=== PATIENT | male | born 1980 | race Caucasian/White ===

== ENCOUNTER 2019-12-23 09:26 | Emergency (ER) | payer OTHER, SELFPAY ==
[2019-12-23 09:42] VITALS: BP 125/82; PULSE 75; RESP 16; TEMP 36.5; O2SAT 99
--- NOTE | 2019-12-23 11:13 | ED.EAR ---
HPI - Ear Problem General Chief complaint: Ear Stated complaint: Ear Pain History of Present Illness HPI Narrative: Is a 39-year-old male comes in complaining of bilateral ear pain that is been going on for the past month and a half. Patient started using [id number] eardrops and taking Tylenol and ibuprofen. Patient states that it feels like there is fluid in his ears. Patient also informed me that he did have pain initially but now does not seem to have pain. Patient states that it is hard for him to hear. Related Data Home Medications Medication Instructions Recorded Confirmed Stool Softner 12/23/19 Allergies Allergy/AdvReac Type Severity Reaction Status Date / Time ephedrine Allergy Mild Verified 02/03/19 14:38 Review of Systems Review of Systems: Narrative: CONSTITUTIONAL: Denies fever, chills, or sweats. EYES: Denies visual changes, redness, or discharge. ENT: Denies rhinorrhea, congestion, sore throat, or positive otalgia. CARDIOVASCULAR:Denies chest pain, palpitations, or edema. RESPIRATORY: Denies cough or dyspnea. GASTROINTESTINAL: Denies abdominal pain, nausea, vomiting, or diarrhea. GENITOURINARY: Denies dysuria or hematuria. SKIN:[Denies rash or itching. MUSCULOSKELETAL:Denies back pain, joint pain, or myalgia. NEUROLOGIC: Denies headache, numbness, or weakness. PSYCHIATRIC:Denies anxiety or depression PMFSH Comments At time as signature, I have reviewed and agree with nursing past medical, social, surgical and family history. Please see nursing chart for further information. There is no relevant family history pertinent to the presenting complaint. Exam Narrative: Exam Narrative: GENERAL:Well-appearing, well-nourished, and in no acute distress. HEAD:Normocephalic, atraumatic. EYES: PERRLA and EOMI. ENT: Nares clear, positive for moderate clear rhinorrhea or epistaxis. Curtis boggy turbinates mucous membranes moist. Bilateral TM bulging with erythema NECK: Supple. CHEST: Clear to auscultation. No respiratory distress. HEART: Regular rate and rhythm. No murmur heard. Normal peripheral pulses. ABDOMEN: Soft, nontender, nondistended, normal active bowel sounds. EXTREMITIES: Normal range of motion. No edema. SKIN: Warm, dry, no rash. NEURO: No focal deficits. Alert and oriented x3. Course Vital Signs Vital signs: Vital Signs Temperature 97.7 F 12/23/19 09:42 Pulse Rate 75 12/23/19 09:42 Respiratory Rate 16 12/23/19 09:42 Blood Pressure 125/82 12/23/19 09:42 Pulse Oximetry 99 12/23/19 09:42 Temperature 97.7 F 12/23/19 09:42 Pulse Rate 75 12/23/19 09:42 Respiratory Rate 16 12/23/19 09:42 Blood Pressure 125/82 12/23/19 09:42 Pulse Oximetry 99 12/23/19 09:42 Medical Decision Making Vital Signs Vital Signs: Vital Signs Temperature 97.7 F 12/23/19 09:42 Pulse Rate 75 12/23/19 09:42 Respiratory Rate 16 12/23/19 09:42 Blood Pressure 125/82 12/23/19 09:42 Pulse Oximetry 99 12/23/19 09:42 Temperature 97.7 F 12/23/19 09:42 Pulse Rate 75 12/23/19 09:42 Respiratory Rate 16 12/23/19 09:42 Blood Pressure 125/82 12/23/19 09:42 Pulse Oximetry 99 12/23/19 09:42 Discharge Plan Discharge Clinical Impression: Otitis media Qualifiers: Otitis media type: unspecified Chronicity: subacute Qualified Code(s): H66.90 - Otitis media, unspecified, unspecified ear Patient Disposition: Home, Self-Care Condition: Stable Instructions: Antibiotic Form, Ear Infection (ED), Allergic Rhinitis (ED) Prescriptions: New amoxicillin 500 mg capsule 500 mg PO Q12H 10 Days Qty: 20 RF: 0 loratadine [Claritin] 10 mg tablet 10 mg PO DAILY PRN (Reason: allergy symptoms) Qty: 30 RF: 0 fluticasone propionate [Flonase Allergy Relief] 50 mcg/actuation spray,suspension 1 spray NASAL DAILY Qty: 19.8 RF: 0 No Action Stool Softner RF: 0 Follow-up/Referrals: PHYSICIAN,PUBLIC RELATIONS CONSULTANT [Primary Care Provider] -
== END 2019-12-23 11:18 | disposition home or self-care (01) ==
PROVIDERS: Emergency Provider Nurse Practitioner Family
DX: H66.93 Otitis media, unspecified, bilateral (principal)
CPT/HCPCS: 99213; G0463

== ENCOUNTER 2023-04-19 13:53 | Emergency (ER) | payer OTHER, SELFPAY ==
--- NOTE | ~2023-04-19 | XR_ITS ---
EXAMINATION: XR ribs RT 2V INDICATION: Right rib pain TECHNIQUE: 3 views of the right ribs were obtained. COMPARISON: None. FINDINGS: Bone alignment is normal. There is no fracture. The right lung is free of acute opacities. No pleural effusion or pneumothorax. IMPRESSION: 1. No acute cardiopulmonary abnormality or evidence of displaced rib fracture. Reviewed, dictated and finalized at location B.
[2023-04-19 14:08] VITALS: BP 119/77; PULSE 82; RESP 16; TEMP 36.4; O2SAT 99
--- NOTE | 2023-04-19 14:10 | ED.GENADULT ---
HPI - General Adult General Chief complaint: Unspecified Stated complaint: injury right side Time Seen by Provider: 04/19/23 14:10 Source: patient, RN notes reviewed and old records reviewed Mode of arrival: ambulatory Limitations: no limitations History of Present Illness HPI narrative: 42-year-old male presents to the [facility] with pain to the right lateral lower rib area since yesterday. Patient states that he was reaching over on a truck when he felt a pain in the lateral right lower rib. No bruising or swelling noted. Tenderness to the lower wrist rib. Has full range of motion of the shoulder. Lungs are clear to auscultation Onset (ago): day(s) (1) Related Data Home Medications Medication Instructions Recorded Confirmed atorvastatin 40 mg tablet 40 mg PO DAILY 04/19/23 04/19/23 escitalopram oxalate 10 mg tablet 10 mg PO DAILY 04/19/23 04/19/23 meloxicam 15 mg tablet 15 mg PO DAILY 04/19/23 04/19/23 montelukast 10 mg tablet 10 mg PO DAILY 04/19/23 04/19/23 omeprazole 40 mg capsule,delayed 40 mg PO DAILY 04/19/23 04/19/23 release Allergies Allergy/AdvReac Type Severity Reaction Status Date / Time ephedrine Allergy Mild Other Verified 04/19/23 14:04 Review of Systems Review of Systems: All systems reviewed & are unremarkable except as noted in HPI and below Constitutional: Constitutional: Reports no additional constitutional complaints Eyes: Eyes: Reports no additional eye complaints ENT: Reports system reviewed and no additional complaints, except as documented Cardiovascular: Cardiovascular: Reports no additional cardiovascular complaints, Denies chest pain and Denies dyspnea Respiratory: Respiratory: Reports no additional respiratory complaints, Denies chest congestion, Denies cough and Denies dyspnea Gastrointestinal: Gastrointestinal: Reports no additional gastrointestinal complaints, Denies abdominal pain, Denies nausea and Denies vomiting Musculoskeletal: Musculoskeletal: Reports as per HPI Integumentary/Breasts: Skin/Breast: Reports system reviewed and no additional complaints, except as docu Neurologic: Reports system reviewed and no additional complaints, except as documented Psychiatric: Psychiatric: Reports no additional psychiatric complaints Allergic/Immunologic: Allergic/Immunologic: Reports no additional allergic/immunologic complaints [facility] Past Medical History Medical History (Updated 04/20/23 @ 14:03 by Kait Viera APRN) H/O gastroesophageal reflux (GERD) High cholesterol Comments At the time of my signature, I reviewed and agree with the nursing past medical, surgical, social, and family history. There is no relevant family history pertinent to the patient complaint. Exam Const: General: cooperative, healthy appearing, comfortable, no acute distress, well developed, alert and well nourished Nutritional Appearance: well nourished Orientation/consciousness: patient oriented x3 Limitations: no limitations HENMT: Head: normal to inspection Ears: hearing grossly normal bilaterally and external ears normal Face/Nose/Sinus: Normal external nose present, Normal nares present, Normal nasal mucous membranes and turbinates present and normal facial exam Face and sinus: normal facial exam Eyes: General: appearance normal, both eyes and all related structures Alignment and Position: alignment normal Periorbital: periorbital findings normal Pupils: Equal, round and reactive pupils present EOM: EOMs intact bilaterally Neck: Neck: normal visual inspection, full ROM, no lymphadenopathy and no meningeal signs Chest: Chest palpation & inspection: normal inspection of the chest Chest/axillae images: 1. Tenderness to palpation Resp: Effort & Inspection: normal respiratory effort and able to speak in complete sentences Auscultation: clear to auscultation bilaterally, no crackles, no rales, no rhonchi and no wheezes Cardio: Rate: regular rate Rhythm: regular rhythm Jeronimo
[2023-04-19 14:15] VITALS: BP 119/77; PULSE 82; RESP 16; TEMP 36.4; O2SAT 99
== END 2023-04-19 14:48 | disposition home or self-care (01) ==
PROVIDERS: Emergency Provider Nurse Practitioner
DX: S20.211A Contusion of right front wall of thorax, initial encounter (principal); Z79.1 Long term (current) use of non-steroidal anti-inflammatories (NSAID); X50.0XXA Overexertion from strenuous movement or load, initial encounter
CPT/HCPCS: 71100; 99213; G0463

== ENCOUNTER 2023-05-13 15:11 | Emergency (ER) | payer OTHER, SELFPAY ==
[2023-05-13 15:36] VITALS: BP 130/84; PULSE 77; RESP 16; TEMP 37; O2SAT 96
--- NOTE | 2023-05-13 15:49 | ED.UPPEXIN ---
HPI - Extremity Injury (Upper) General Chief Complaint: Extremity Injury, Upper Stated Complaint: injured fingers let hand Time Seen by Provider: 05/13/23 15:49 Source: patient Mode of arrival: ambulatory Limitations: no limitations History of Present Illness HPI narrative: 42-year-old male presented for complaint of laceration to the left index finger tip after injury today. He states he sliced the finger on the vent of a metal color. He applied pressure but was not able to cleanse the site. He is unsure of his last tetanus vaccination. Related Data Home Medications Medication Instructions Recorded Confirmed atorvastatin 40 mg tablet 40 mg PO DAILY 04/19/23 04/19/23 escitalopram oxalate 10 mg tablet 10 mg PO DAILY 04/19/23 04/19/23 meloxicam 15 mg tablet 15 mg PO DAILY 04/19/23 04/19/23 montelukast 10 mg tablet 10 mg PO DAILY 04/19/23 04/19/23 omeprazole 40 mg capsule,delayed 40 mg PO DAILY 04/19/23 04/19/23 release Allergies Allergy/AdvReac Type Severity Reaction Status Date / Time ephedrine Allergy Mild Other Verified 05/13/23 15:25 Review of Systems Review of Systems: CONSTITUTIONAL: Denies body aches, fever, chills EYES: Denies visual changes ENT: Denies rhinorrhea, congestion CARDIOVASCULAR: Denies chest pain, palpitations, or edema. RESPIRATORY: Denies cough or dyspnea. GASTROINTESTINAL: Denies abdominal pain, nausea, vomiting, or diarrhea. SKIN: Reports right finger wound MUSCULOSKELETAL: Denies back pain, joint pain, or myalgia. NEUROLOGIC: Denies headache, numbness, tingling, or weakness. All systems reviewed & are unremarkable except as noted in HPI and below PMFSH Past Medical History Medical History H/O gastroesophageal reflux (GERD) High cholesterol Comments At time of signature, I have reviewed and agree with nursing past medical, surgical, social and family history unless otherwise noted. Please see nursing chart for further information. There is no relevant family history pertinent to the presenting complaint Exam Narrative: GENERAL: Well-appearing, well-nourished, and in no acute distress. HEAD: Normocephalic, atraumatic. EYES: conjunctivae clear NECK: Supple. CHEST: Speaks in full sentences. No respiratory distress. HEART: Regular rate and rhythm. Normal and equal peripheral pulses. EXTREMITIES: Left 2nd digit distal phalanx with laceration and flap in U-shap approx 2cm; active bleeding. Hand has normal strength and sensation, normal range of motion, pulse palpable and equal bilaterally, skin warm, dry, pink. Capillary refill less than 3 seconds. SKIN: Warm, dry, no rash. NEURO: Alert and oriented x3. PSYCH: Normal mood and affect Course Course Emergency Course: Patient is aware of diagnosis, understands and agrees to treatment plan. Anticipatory guidance given. Patient agrees to follow-up as directed and is aware of reasons to seek care at the emergency department. Portions of this record may have been created with voice recognition software Level of Care: Express Care Visit Vital Signs Vital signs: Vital Signs Temperature 98.6 F 05/13/23 15:36 Pulse Rate 77 05/13/23 15:36 Respiratory Rate 16 05/13/23 15:36 Blood Pressure 130/84 05/13/23 15:36 Pulse Oximetry 96 05/13/23 15:36 Oxygen Delivery Room Air 05/13/23 15:36 Temperature 98.6 F 05/13/23 15:36 Pulse Rate 77 05/13/23 15:36 Respiratory Rate 16 05/13/23 15:36 Blood Pressure 130/84 05/13/23 15:36 Pulse Oximetry 96 05/13/23 15:36 Oxygen Delivery Room Air 05/13/23 15:36 Reviewed Procedures Laceration left 2nd digit: Date: 05/13/23 Size (cm): 2 Description: flap (U-shape) and irregular Depth: simple, single layer Local Anesthetic: lidocaine 1% (digital block) Amount of anesthesia used (mL): 10 Pre-repair: wound explored and irrigated (50mL)
[2023-05-13] MEDS: TETANUS,DIPHTHERIA,AC PERTUSSIS ADULT (0.5 ML) BOOSTRIX IM (16:06)
== END 2023-05-13 17:00 | disposition home or self-care (01) ==
PROVIDERS: Emergency Provider Nurse Practitioner Family; PCP Family Medicine
DX: S61.211A Laceration without foreign body of left index finger without damage to nail, initial encounter (principal); W45.8XXA Other foreign body or object entering through skin, initial encounter; Z23 Encounter for immunization; K21.9 Gastro-esophageal reflux disease without esophagitis; E78.00 Pure hypercholesterolemia, unspecified
CPT/HCPCS: 12001; 90471; 90715; 99213; G0463

== ENCOUNTER 2023-09-25 10:33 | Emergency (ER) | payer OTHER, SELFPAY ==
[2023-09-25 10:43] VITALS: BP 126/91; PULSE 67; RESP 16; TEMP 36.3; O2SAT 99
--- NOTE | 2023-09-25 10:52 | ED.URI ---
HPI - URI/Sore Throat General Chief Complaint: Upper Respiratory Infection Stated Complaint: both ears blocked,cough Source: patient Mode of arrival: ambulatory Limitations: no limitations History of Present Illness HPI Narrative: 42 y/o male presented for c/o bilateral ear pressure for about one month. Endorses sinus congestion and cough for the same amount of time. Taking antihistamine and Flonase for symptoms. Denies tinnitus, dizziness, sob, wheezing, n/v/d/f/c. Related Data Home Medications Medication Instructions Recorded Confirmed atorvastatin 40 mg tablet 40 mg PO DAILY 04/19/23 09/25/23 escitalopram oxalate 10 mg tablet 10 mg PO DAILY 04/19/23 09/25/23 meloxicam 15 mg tablet 15 mg PO DAILY 04/19/23 09/25/23 montelukast 10 mg tablet 10 mg PO DAILY 04/19/23 09/25/23 omeprazole 40 mg capsule,delayed 40 mg PO DAILY 04/19/23 09/25/23 release cyclobenzaprine 10 mg tablet 10 mg PO TID PRN Muscle Pain 09/25/23 09/25/23 Allergies Allergy/AdvReac Type Severity Reaction Status Date / Time No Known Allergies Allergy Verified 09/25/23 10:53 Review of Systems Review of Systems: CONSTITUTIONAL: Denies malaise, chills, or fever. EYES: Denies visual changes, redness, or discharge. ENT: reports rhinorrhea, congestion, sinus pain, ear pain. CARDIOVASCULAR: Denies chest pain, palpitations, or edema. RESPIRATORY: reports cough denies dyspnea. GASTROINTESTINAL: Denies abdominal pain, nausea, vomiting, diarrhea SKIN: Denies rash or itching. MUSCULOSKELETAL: Denies myalgia. NEUROLOGIC: Denies headache. All systems reviewed & are unremarkable except as noted in HPI and below PMFSH Past Medical History Medical History H/O gastroesophageal reflux (GERD) High cholesterol Comments At time of signature, agree with nursing past medical, surgical, social and family history. There is no relevant family history pertinent to the presenting complaint Exam Narrative: GENERAL: Well-appearing, and in no acute distress. HEAD: Normocephalic EYES: PERRLA, conjunctivae clear ENT: Nares clear. Mucous membranes moist. TMs erythematous, bulging and intact with purulent effusion, canals not erythematous; No drainage, no tragal tenderness. Oropharynx not erythematous no drooling, no hoarseness, no trismus, uvula midline. NECK: Supple. No lymphadenopathy CHEST: Clear to auscultation, breath sounds equal. No wheezing, rhonchi, rales, or stridor. No respiratory distress, speaks in full sentences. HEART: Regular rate and rhythm. No murmur heard. SKIN: Warm, dry, no rash. NEURO: Alert and oriented x3. PSYCH: Normal mood and affect Course Course Emergency Course: Patient is aware of diagnosis, understands and agrees to treatment plan. Anticipatory guidance given. Patient agrees to follow-up as directed and is aware of reasons to seek care at the emergency department. Portions of this record may have been created with voice recognition software Level of Care: Express Care Visit Vital Signs Vital signs: Vital Signs Temperature 97.3 F L 09/25/23 10:43 Pulse Rate 67 09/25/23 10:43 Respiratory Rate 16 09/25/23 10:43 Blood Pressure 126/91 H 09/25/23 10:43 Pulse Oximetry 99 09/25/23 10:43 Oxygen Delivery Room Air 09/25/23 10:43 Temperature 97.3 F L 09/25/23 10:43 Pulse Rate 67 09/25/23 10:43 Respiratory Rate 16 09/25/23 10:43 Blood Pressure 126/91 H 09/25/23 10:43 Pulse Oximetry 99 09/25/23 10:43 Oxygen Delivery Room Air 09/25/23 10:43 Reviewed MDM - URI/Sore Throat MDM Narrative Medical decision making narrative: Discussed physical exam findings c/w bilateral AOM. Advised supportive measures and signs/symptoms to go to the ER. Pt is appropriate for outpt treatment and f/u. Differential Diagnosis Differential diagnosis: Likely upper respiratory infection, otitis media, sinusitis, bronchitis, influenza and pharyngitis Discharge Plan
== END 2023-09-25 10:55 | disposition home or self-care (01) ==
PROVIDERS: Emergency Provider Nurse Practitioner Family
DX: H66.93 Otitis media, unspecified, bilateral (principal); K21.9 Gastro-esophageal reflux disease without esophagitis; E78.00 Pure hypercholesterolemia, unspecified
CPT/HCPCS: 99213; G0463

== ENCOUNTER 2023-10-24 11:27 | Emergency (ER) | payer OTHER, SELFPAY ==
[2023-10-24 11:44] VITALS: BP 126/89; PULSE 81; RESP 16; TEMP 36.9; O2SAT 99
[2023-10-24 11:47] VITALS: BP 126/89; PULSE 81; RESP 16; TEMP 36.9; O2SAT 99
--- NOTE | 2023-10-24 12:30 | ED.URI ---
HPI - URI/Sore Throat General Chief Complaint: Upper Respiratory Infection Stated Complaint: headaches,ear issue Time Seen by Provider: 10/24/23 12:31 History of Present Illness HPI Narrative: 43-year-old male presented for complaint of sinus congestion and bilateral ear pressure/fluid with headaches for over 1 month.Also reports productive cough and drainage in the mornings. Patient was seen 1 month ago for similar symptoms, treated for bilateral otitis media with Augmentin, but reports minimal improvement. However he stated he has been using Afrin spray for several weeks in addition to Flonase and prescribed allergy med. Continues with Flonase and prescribed antihistamine. Patient scheduled with PCP 11/26/2023 Related Data Home Medications Medication Instructions Recorded Confirmed atorvastatin 40 mg tablet 40 mg PO DAILY 04/19/23 10/24/23 escitalopram oxalate 10 mg tablet 10 mg PO DAILY 04/19/23 10/24/23 meloxicam 15 mg tablet 15 mg PO DAILY 04/19/23 10/24/23 montelukast 10 mg tablet 10 mg PO DAILY 04/19/23 10/24/23 omeprazole 40 mg capsule,delayed 40 mg PO DAILY 04/19/23 10/24/23 release cyclobenzaprine 10 mg tablet 10 mg PO TID PRN Muscle Pain 09/25/23 10/24/23 Allergies Allergy/AdvReac Type Severity Reaction Status Date / Time No Known Allergies Allergy Verified 10/24/23 11:43 Review of Systems Review of Systems: CONSTITUTIONAL: Denies body aches, fever, chills, or sweats. EYES: Denies visual changes, redness, or discharge. ENT: reports rhinorrhea, congestion, otalgia. CARDIOVASCULAR: Denies chest pain, palpitations, or edema. RESPIRATORY: Denies dyspnea. GASTROINTESTINAL: Denies abdominal pain, nausea, vomiting, or diarrhea. SKIN: Denies rash, itching, or wounds. MUSCULOSKELETAL: Denies back pain, joint pain, or myalgia. NEUROLOGIC: reports headache PMFSH Past Medical History Medical History H/O gastroesophageal reflux (GERD) High cholesterol Exam Narrative: GENERAL: well-appearing, no acute distress. EYES: conjunctivae clear ENT: Mucous membranes moist. Nasal congestion. TMs with normal light reflex, clear effusion bilaterally; no tragal tenderness. NECK: Supple. No lymphadenopathy CHEST: Clear to auscultation, breath sounds equal. No respiratory distress, speaks in full sentences. HEART: Regular rate and rhythm. No murmur heard. SKIN: Warm, dry, no rash. NEURO: Alert and oriented x3. Course Course Emergency Course: Patient is aware of diagnosis, understands and agrees to treatment plan. Anticipatory guidance given. Patient agrees to follow-up as directed and is aware of reasons to seek care at the emergency department. Portions of this record may have been created with voice recognition software Level of Care: Express Care Visit Vital Signs Vital signs: Vital Signs Temperature 98.4 F 10/24/23 11:44 Pulse Rate 81 10/24/23 11:44 Respiratory Rate 16 10/24/23 11:44 Blood Pressure 126/89 10/24/23 11:44 Pulse Oximetry 99 10/24/23 11:44 Oxygen Delivery Room Air 10/24/23 11:44 Temperature 98.4 F 10/24/23 11:47 Pulse Rate 81 10/24/23 11:47 Respiratory Rate 16 10/24/23 11:47 Blood Pressure 126/89 10/24/23 11:47 Pulse Oximetry 99 10/24/23 11:47 Oxygen Delivery Room Air 10/24/23 11:47 MDM - URI/Sore Throat MDM Narrative Medical decision making narrative: Discussed physical exam findings. Bilateral ears appear improved from 1 month ago. Patient has been advised to immediately stop the use of Afrin. We discussed the consequences of addiction as well as rebound congestion. Will send doxy. Advise supportive treatments. Patient is appropriate for outpatient treatment and follow-up. Differential Diagnosis Differential diagnosis: Likely upper respiratory infection, viral infection and pharyngitis Discharge Plan Discharge Clinical Impression: Upper respiratory
== END 2023-10-24 12:50 | disposition home or self-care (01) ==
PROVIDERS: Emergency Provider Nurse Practitioner Family; PCP Family Medicine
DX: J06.9 Acute upper respiratory infection, unspecified (principal); H65.03 Acute serous otitis media, bilateral; K21.9 Gastro-esophageal reflux disease without esophagitis; E78.00 Pure hypercholesterolemia, unspecified
CPT/HCPCS: 99213; G0463

== ENCOUNTER 2024-11-23 09:36 | Emergency (ER) | payer OTHER, SELFPAY ==
[2024-11-23 09:56] VITALS: BP 122/86; PULSE 63; RESP 16; TEMP 35.8; O2SAT 99
--- NOTE | 2024-11-23 10:40 | ED.URI ---
HPI - URI/Sore Throat General Chief Complaint: Upper Respiratory Infection Stated Complaint: GAGNON,right side head pain,nauseous. Rgt foot injury Time Seen by Provider: 11/23/24 10:41 Source: patient, RN notes reviewed and old records reviewed Mode of arrival: ambulatory Limitations: no limitations and other History of Present Illness HPI Narrative: Patient presents with vague symptoms. He is not forthcoming with why he is here today, continuously referring to chronic symptoms. When asked what symptoms he is having today he becomes verbally abusive and states that he wants to leave. He declined any testing for viral illnesses prior to leaving Related Data Home Medications ?Medication ?Instructions ?Recorded ?Confirmed ?Last Taken ?Type atorvastatin 40 mg tablet 40 mg PO DAILY 04/19/23 10/24/23 Unknown History escitalopram oxalate 10 mg tablet 10 mg PO DAILY 04/19/23 10/24/23 Unknown History meloxicam 15 mg tablet 15 mg PO DAILY 04/19/23 10/24/23 Unknown History montelukast 10 mg tablet 10 mg PO DAILY 04/19/23 10/24/23 Unknown History omeprazole 40 mg capsule,delayed 40 mg PO DAILY 04/19/23 10/24/23 Unknown History release cyclobenzaprine 10 mg tablet 10 mg PO TID PRN Muscle Pain 09/25/23 10/24/23 Unknown History Allergies Allergy/AdvReac Type Severity Reaction Status Date / Time No Known Allergies Allergy Verified 11/23/24 10:13 Review of Systems Constitutional: Comments: Headache ENT: Reports nasal congestion PMF Past Medical History Medical History H/O gastroesophageal reflux (GERD) High cholesterol Comments At the time of my signature, I reviewed and agree with the nursing past medical, surgical, social, and family history. There is no relevant family history pertinent to the patient complaint. Exam Const: General: no acute distress, alert and awake Orientation/consciousness: oriented to person, oriented to place and oriented to time Limitations: other limitations (Patient verbally abusive and uncooperative with exam) HENMT: Head: normal to inspection Resp: Effort & Inspection: normal respiratory effort and able to speak in complete sentences Neuro: General: oriented to person, oriented to place and oriented to time Cranial nerves: Yes CN's II-XII intact bilaterally Course Course Level of Care: Express Care Visit Vital Signs Vital signs: Vital Signs Temperature 96.5 F L 11/23/24 09:56 Pulse Rate 63 11/23/24 09:56 Respiratory Rate 16 11/23/24 09:56 Blood Pressure 122/86 11/23/24 09:56 Pulse Oximetry 99 11/23/24 09:56 Oxygen Delivery Room Air 11/23/24 09:56 Temperature 96.5 F L 11/23/24 09:56 Pulse Rate 63 11/23/24 09:56 Respiratory Rate 16 11/23/24 09:56 Blood Pressure 122/86 11/23/24 09:56 Pulse Oximetry 99 11/23/24 09:56 Oxygen Delivery Room Air 11/23/24 09:56 Reviewed MDM - URI/Sore Throat MDM Narrative Medical decision making narrative: Patient verbally abusive with staff members, cursing and yelling. Unable to do full physical exam Discharge instructions reviewed with patient, as well as provided in writing per nursing staff. The instructions also include specific and strict return/GO TO THE ER as well as f/u information. All questions have been answered, and the patient deny any further questions with discharge and discharge plan. Some parts of this dictation were generated by voice recognition software and may contain typographical and/or grammatical inaccuracies. Differential Diagnosis Differential diagnosis: Likely upper respiratory infection, sinusitis, viral infection and influenza Medical Records Attestation: I reviewed the patient's medical records. Discharge Plan Discharge Clinical Impression: Headache Qualifiers: Headache type: unspecified Headache chronicity pattern: unspecified pattern Intractability: not intractable Qualified Code(s): R51.9 - Headache, unspecified Patient Disposition: Home, Self-Care Condition: Stable Instructions: Antibiotic Form, Acute Headache (ED) Additional Instructions: Follow-up with primary care provider. Emergency department new or worse symptoms Patient Language: Swiss Prescriptions: No Action cyclobenzaprine 10 mg tablet 10 mg PO TID PRN (Reason: Muscle Pain) albuterol sulfate 90 mcg/actuation HFA aerosol inhaler 2 inh inhalation QID PRN (Reason: shortness of breath or wheezing) Qty: 8.5 0RF doxycycline hyclate 100 mg tablet 100 mg PO BID 5 Days Qty: 10 0RF atorvastatin 40 mg tablet 40 mg PO DAILY meloxicam 15 mg tablet 15 mg PO DAILY omeprazole 40 mg capsule,delayed release(DR/EC) 40 mg PO DAILY montelukast 10 mg tablet 10 mg PO DAILY escitalopram oxalate 10 mg tablet 10 mg PO DAILY Follow-up/Referrals: PHYSICIAN,MANUFACTURING ENGINEER [employer]SEM[employer]Y [Primary Care Provider] - 2 Days Stand Alone Forms: Work/School Release IP Time of Disposition: 10:51
== END 2024-11-23 10:53 | disposition home or self-care (01) ==
PROVIDERS: Emergency Provider Nurse Practitioner Family
DX: R51.9 Headache, unspecified (principal); E78.00 Pure hypercholesterolemia, unspecified; K21.9 Gastro-esophageal reflux disease without esophagitis
CPT/HCPCS: 99211; G0463